=== PATIENT | male | born 2000 ===

== ENCOUNTER 2024-02-13 23:03 | Emergency (ER) | payer OTHER ==
[~2024-02-13] VITALS: Ht 170.2 cm; Wt 97.5 kg
[2024-02-13] MEDS ORDERED: Prednisone20 MG PO (23:09)
[2024-02-13] MEDS ORDERED: EPIPEN0.3 MG/0.3 IM (23:09)
== END 2024-02-13 23:14 | disposition home or self-care (01) ==
LOC: ER 23:03
DX: T63.441A Toxic effect of venom of bees, accidental (unintentional), initial encounter (principal); Z79.52 Long term (current) use of systemic steroids; Z79.899 Other long term (current) drug therapy
CPT/HCPCS: 99284